=== PATIENT | female | born 1975 | race Caucasian/White ===

== ENCOUNTER → 2023-10-26 | Outpatient (CLI) | payer BC | LOC: M WHC 13:17 | PROVIDERS: ATTEND Obstetrics & Gynecology | DX: N83.201 Unspecified ovarian cyst, right side (principal); R93.89 Abnormal findings on diagnostic imaging of other specified body structures ==

== ENCOUNTER → 2023-11-23 | Outpatient (REF) | payer BC | LOC: M SFHCWAGY 13:26 | PROVIDERS: ATTEND Obstetrics & Gynecology | DX: N93.9 Abnormal uterine and vaginal bleeding, unspecified (principal) ==

== ENCOUNTER → 2023-12-27 | Outpatient (CLI) | payer BC | LOC: M RAD 11:23 | PROVIDERS: ATTEND Obstetrics & Gynecology | DX: N83.201 Unspecified ovarian cyst, right side (principal); N84.0 Polyp of corpus uteri ==

== ENCOUNTER 2024-01-18 08:51 | Day surgery (SDC) | payer BC ==
[~2024-01-18] VITALS: Ht 157.5 cm; Wt 67.9 kg
[2024-01-18 09:30] LABS: MEAN CORPUSCULAR HEMOGLOBIN 24.3 pg (27.0-33.0); MEAN CORPUSCULAR HGB CONC 31.3 g/dl (32.0-36.5); MEAN CORPUSCULAR VOLUME 77.7 fl (80.0-96.0); PLATELET COUNT, AUTOMATED 296 10^3/uL (150-450); RED BLOOD COUNT 4.12 10^6/uL (4.00-5.40); WHITE BLOOD COUNT 5.7 10^3/uL (4.0-10.0)
[2024-01-18] MEDS ORDERED: fentaNYL 100 MCG/2 ML INJECTION As Ordered ONE (10:46)
[2024-01-18] MEDS ORDERED: MIDAZOLAM INJ 2MG/2ML VIAL As Ordered ONE (10:47)
[2024-01-18] MEDS ORDERED: ONDANSETRON 4MG 2ML VIAL As Ordered ONE (10:47)
[2024-01-18] MEDS ORDERED: ROCURONIUM BROMIDE 50MG/5ML VIAL As Ordered ONE (10:57)
[2024-01-18] MEDS ORDERED: propofoL 200 MG/20 ML VIAL As Ordered ONE (10:57)
[2024-01-18] MEDS ORDERED: LR 1,000 ML IV SCH (11:00)
[2024-01-18] MEDS: ceFAZolin SOD 2 GM in IV 1 EA IV ONE ×2 (11:05→14:30)
[2024-01-18] MEDS: METHYLENE BLUE 0.5% (5MG/ML) 10 ML AMP (PROVAYBLUE) As Ordered ONE (12:46)
[2024-01-18] MEDS ORDERED: GLYCOPYRROLATE INJ 0.2 MG/ML 2 ML VIAL As Ordered ONE (13:36)
[2024-01-18] MEDS ORDERED: NEOSTIGMINE 10MG 10ML VIAL As Ordered ONE (13:37)
[2024-01-18] MEDS ORDERED: fentaNYL 100 MCG/2 ML INJECTION IV PRN (13:45)
[2024-01-18] MEDS ORDERED: diphenhydrAMINE 50MG/ML VIAL IV PRN ×2 (13:45→14:35)
[2024-01-18] MEDS ORDERED: HYDROMORPHONE HCL 0.5 MG/ 0.5 ML SYRINGE IV PRN (13:45)
[2024-01-18] MEDS ORDERED: PERCOCET PO (14:26)
[2024-01-18] MEDS ORDERED: COLA100C5 PO (14:28)
[2024-01-18] MEDS ORDERED: IBUP80TA PO (14:29)
[2024-01-18] MEDS ORDERED: MORPHINE 4 MG/ML 1ML VIAL IV PRN (14:30)
[2024-01-18] MEDS ORDERED: ONDANSETRON 4MG 2ML VIAL IV PRN (14:30)
[2024-01-18] MEDS: METOCLOPRAMIDE INJ 10MG/2ML VIAL IV PRN (14:32)
[2024-01-18] MEDS: KETOROLAC 30 MG/ML 1ML VIAL IV ONE (14:32)
[2024-01-18] MEDS: MEPERIDINE 25 MG/ML 1ML VIAL IV PRN (14:32)
[2024-01-18] MEDS ORDERED: PERCOCET 5MG/325MG TAB PO PRN (14:35)
[2024-01-18] MEDS: ONDANSETRON 4MG 2ML VIAL IV PRN (14:55)
[2024-01-18] MEDS: oxyCODONE 5MG TAB PO PRN (15:14)
[2024-01-18 16:34] VITALS: BP 122/63; TEMP 97.4; O2SAT 100
[2024-01-18] MEDS ORDERED: KETOROLAC 30 MG/ML 1ML VIAL IV PRN (20:00)
== END 2024-01-18 16:52 | disposition home or self-care (01) ==
LOC: M SDC 08:51
PROVIDERS: ATTEND Obstetrics & Gynecology
DX: N83.201 Unspecified ovarian cyst, right side (principal); N84.0 Polyp of corpus uteri; R19.09 Other intra-abdominal and pelvic swelling, mass and lump; N80.112 Superficial endometriosis of left ovary; N73.6 Female pelvic peritoneal adhesions (postinfective); N93.9 Abnormal uterine and vaginal bleeding, unspecified; D64.9 Anemia, unspecified
CPT/HCPCS: 36415; 49329; 58558; 58661; 81025; 85027; 86850; 86900; 86901; 88305; J0665; J0690; J1100; J1596; J1885; J2175; J2250; J2405; J2710; J2765; J3010; Q9968